=== PATIENT | male | born 1980 | race Caucasian/White ===

== ENCOUNTER 2016-12-28 22:21 | Inpatient (IN) | payer MEDICAID, OTHER ==
[2016-12-28 22:21] VITALS: BMI 22.3
[2016-12-28 23:05] LABS: BASO # 0.1 K/uL (0.0-0.2); BASO % 0.7 % (0.0-2.0); EOS # 0.2 K/uL (0.0-0.7); HEMATOCRIT 46.8 % (35.0-51.0); LYMPH # 3.3 K/uL (1.0-4.3); MEAN CELL VOLUME 84.7 fL (80.0-94.0); MEAN CORPUSCULAR HEMOGLOBIN 27.9 pg (27.0-31.0); MEAN PLATELET VOLUME 7.6 fL (7.2-11.7); MONO # 0.4 K/uL (0.0-0.8); MONO % 4.9 % (0.0-10.0); NRBC % 0.1 % (0.0-2.0); RED CELL DISTRIBUTION WIDTH 14.4 % (11.5-14.5)
[2016-12-28 23:07] LABS: URINE BILIRUBIN NEGATIVE (NEGATIVE); URINE BLOOD NEGATIVE (NEGATIVE); URINE COLOR Straw (YELLOW); URINE GLUCOSE (UA) NORMAL (Normal); URINE KETONE NEGATIVE (NEGATIVE); URINE LEUKOCYTE ESTERASE NEG Leu/uL (Negative); URINE PROTEIN NEGATIVE (NEGATIVE); URINE UROBILINOGEN NORMAL mg/dL (0.2-1.0)
[2016-12-28 23:09] LABS: CHLORIDE 104 mmol/L (98-107)
[2016-12-28 23:10] LABS: POTASSIUM 4.1 mmol/L (3.6-5.2); SODIUM 142 mmol/L (132-148)
[2016-12-28 23:12] LABS: GFR AFRICAN-AMERICAN > 60
[2016-12-28 23:13] LABS: ALB/GLOB RATIO 1.5 (1.0-2.1); ALKALINE PHOSPHATASE 57 U/L (38-126); ALT/SGPT 33 U/L (21-72); AST/SGOT 26 U/L (17-59); BILIRUBIN,TOTAL 0.8 mg/dL (0.2-1.3); BLOOD UREA NITROGEN 8 mg/dL (9-20); CALCIUM 8.8 mg/dl (8.6-10.4); CARBON DIOXIDE 20 mmol/L (22-30); GLUCOSE,RANDOM 87 mg/dL (75-110); TOTAL PROTEIN 7.8 g/dL (6.3-8.3)
[2016-12-28 23:14] LABS: ALCOHOL SERUM 150 mg/dl (0-10)
--- NOTE | 2016-12-29 03:41 | C.PDOC ---
Addendum entered and electronically signed by Oumou Mensah PA 12/29/16 09: 10: Addendum Addendum: 07:00 Receiving Sign Out Patient was signed out to me by JANN Jaimes. Pending re- evaluation and disposition. On re-evaluation, Patient has no complaints. States he is tired. No slurred speech or tremors/shaking. Pending crisis evaluation 09:00 Patient was evaluated by bridge worker apprentice, who reports that patient has been accepted for admission by Dr. Hinkle for alcohol dependence. Original Note: History Of Present Illness The patient, a 36 y/o male whose PMHx includes alcohol abuse, presents to the ED requesting alcohol detox. Patient states his last drink was around 3 hours prior to arrival. Patient denies suicidal/homicidal ideation and has no physical complaints at this time. Time Seen by Provider: 12/28/16 23:03 Chief Complaint (Nursing): Substance Abuse History Per: Patient History/Exam Limitations: intoxication Onset/Duration Of Symptoms: Hrs Current Symptoms Are (Timing): Still Present Modifying Factor(s): Alcohol Associated Symptoms: denies: Suicidal Thoughts, Suicidal Plan Involuntary Hold By: None Recent travel outside of the [place]: No Additional History Per: Patient Past Medical History Reviewed: Historical Data, Nursing Documentation, Vital Signs Vital Signs: Last Vital Signs Temp 97.7 F 12/28/16 22:34 Pulse 80 12/28/16 22:34 Resp 17 12/29/16 06:20 BP 108/70 12/28/16 22:34 Pulse Ox 98 12/29/16 06:20 - Medical History PMH: Depression, Migraine, Schizophrenia Denies: Bipolar Disorder, Diabetes, Hepatitis, HIV, HTN, Personality Disorder , Chronic Kidney Disease, Seizures, Sexually Transmitted Disease Surgical History: No Surg Hx - [facility] Procedures ALCOHOL DETOXIFICATION (05/09/13) GROUP PSYCHOTHERAPY (06/08/16) INDIVIDUAL PSYCHOTHERAPY, BEHAVIORAL (09/20/15) INDIVIDUAL PSYCHOTHERAPY, COGNITIVE-BEHAVIORAL (06/08/16) INTRODUCTION OF SERUM/TOX/VACCINE INTO MUSCLE, PERC APPROACH (06/08/16) Family History: States: Unknown Family Hx - Social History Hx Tobacco Use: No Hx Alcohol Use: Yes Hx Substance Use: Yes (cocaine) - Immunization History Hx Tetanus Toxoid Vaccination: Yes Hx Influenza Vaccination: Yes Hx Pneumococcal Vaccination: Yes Review Of Systems Except As Marked, All Systems Reviewed And Found Negative. Psych: Positive for: Other (reqest for alcohol detox ). Negative for: Suicidal ideation Physical Exam - Physical Exam Appears: No Acute Distress Skin: Normal Color, Warm, Dry Head: Atraumatic, Normacephalic Eye(s): bilateral: Normal Inspection, EOMI Oral Mucosa: Moist, Other (alcohol on breath ) Neck: Supple Chest: Symmetrical, No Deformity, No Tenderness Cardiovascular: Rhythm Regular, No Murmur Respiratory: Normal Breath Sounds, No Rales, No Rhonchi, No Wheezing Extremity: Normal ROM, Capillary Refill (less than 2 seconds) Neurological/Psych: Oriented x3, No Normal Speech (slurred ), Other (no hand tremors ) Gait: Steady ED Course And Treatment - Laboratory Results Result Diagrams: 12/28/16 23:02 12/28/16 23:02 O2 Sat by Pulse Oximetry: 95 (on RA) Pulse Ox Interpretation: Normal Progress Note: labs ordered and reviewed. 7AM--- Pt is pending crisis eval for detox. Pt has no other c/o , VSS Disposition - Disposition Disposition: HOME/ ROUTINE Disposition Time: 06:59 Condition: STABLE - Clinical Impression Clinical Impression: Alcohol abuse - PA / TEST CELL TECHNICIAN / Resident Statement MD/DO has reviewed & agrees with the documentation as recorded. - Scribe Statement The provider has reviewed the documentation as recorded by the Scribe (Nathalia Espinosa) All medical record entries made by the Scribe were at my direction and personally dictated by me. I have reviewed the chart and agree that the record accurately reflects my personal performance of the history, physical exam, medical decision making, and the department course for this patient. I have also personally directed, reviewed, and agree with the discharge instructions and disposition. Physician Patient Turnover Patient Signed Over To: Oumou Mensah Handoff Comments: Pending crisis eval for detox admission
[2016-12-29] MEDS ORDERED: Alum-Mag Hydrox-Simethicone Susp (30 mL) PO PRN (13:35)
[2016-12-29] MEDS: Brimonidine 0.2% Opth Sol (5ml) OU SCH (21:17)
--- NOTE | 2016-12-29 22:10 | PCM.PSYCH ---
Initial Psychiatric Evaluation - Initial Psychiatric Evaluation Chief Complaint (in patient's own words): i am tired of being drunk Patient's Reaction to Hospitalization: glad and happy History of Present Illness and Precipitating Events: pt is a 36 year old male who lives with a friend. he started drinking alcohol age 15n and became a problem in his mid twenties.Pt drinks on the average 10 beers a day Pt uses cocaine when he is drunk. he DENIES USE OF ANY OTHER SUBSTANCES LICIT OR ILLICIT. mother and father are . pt has 4 sisters and he is fourth in a sibship of five. pT DENIES ANY FAMILY HISTORY OF MENTAL ILLNESS OR SUBSTANCE ABUSE Pt has been at [facility] three times . The first time was age 17 and the last one was six months ago. He usually goes to the hospital because of panic attacks. Pt had one detox at [facility] but never was in a rehab, The longest period of sobriety has been 3 months. [place] and came to [place] age 9. He went up to 11th grade. He never worked. He gets SSI Current Medications: Active Medications Generic Name Dose Route Start Last Admin Trade Name Freq PRN Reason Stop Dose Admin Acetaminophen 650 mg 12/29/16 13:44 Tylenol 325mg Tab PO Q6 PRN Pain, moderate (4-7) Al Hydrox/Mg Hydrox/Simethicone 30 ml 12/29/16 13:35 Maalox Plus 30 Ml PO 01/01/17 13:36 Q6 PRN Indigestion / Heartburn Brimonidine Tartrate 0.1 ml 12/29/16 22:00 12/29/16 21:17 Alphagan 0.2% Opht OU 1 drop Q12 KRYSTAL Administration Chlordiazepoxide 25 mg 12/29/16 18:00 12/29/16 18:03 Librium PO 01/02/17 17:59 25 mg Q6 KRYSTAL Administration Taper Chlordiazepoxide 25 mg 12/29/16 13:40 Librium PO Q4H PRN Alcohol Withdrawal Folic Acid 1 mg 12/30/16 10:00 Folic Acid PO DAILY KRYSTAL Hydroxyzine HCl 25 mg 12/29/16 13:36 Atarax PO Q6 PRN Anxiety Influenza Virus Vaccine 45 mcg 01/01/17 09:00 Afluria IM 01/01/17 09:01 .ONCE ONE Multivitamins 1 tab 12/30/16 10:00 Hexavitamin PO DAILY KRYSTAL Thiamine HCl 100 mg 12/30/16 10:00 Vitamin B1 Tab PO DAILY KRYSTAL Trazodone HCl 50 mg 12/29/16 22:00 12/29/16 21:19 Desyrel PO 50 mg HS PRN Administration Insomnia Past Psychiatric History - Past Psychiatric History Prior Professional Help: see HPI Pertinent Medical Hx (Current Medical&Sleep Prob, Allergies): Allergies Allergy/AdvReac Type Severity Reaction Status Date / Time No Known Allergies Allergy Verified 12/28/15 19:05 No Known Home Med 12/28/16 Review of Systems - Constitutional Constitutional: Weakness, Malaise - EENT Eyes: UNREMARKABLE Ears: UNREMARKABLE Nose/Mouth/Throat: UNREMARKABLE - Cardiovascular Cardiovascular: UNREMARKABLE - Respiratory Respiratory: UNREMARKABLE - Gastrointestinal Gastrointestinal: UNREMARKABLE - Genitourinary Genitourinary: UNREMARKABLE - Reproductive: Male Reproductive:Male: UNREMARKABLE - Musculoskeletal Musculoskeletal: Back Pain - Integumentary Integumentary: UNREMARKABLE - Neurological Neurological: UNREMARKABLE - Psychiatric Psychiatric: Anxiety, Irritability - Endocrine Endocrine: UNREMARKABLE - Hematologic/Lymphatic Hematologic: UNREMARKABLE Mental Status Examination - Personal Presentation Personal Presentation: Looks older than stated age - Affect Affect: Constricted - Motor Activity Motor Activity: Calm - Reliability in Providing Information Reliability in Providing Information: Good - Speech Speech: Organized - Mood Mood: Anxious - Formal Thought Process Formal Thought Process: No Impairment - Cognitive Functions Orientation: Person, Place, Situation, Time Sensorium: Alert Attention/Concentration: Attentive Abstract Thinking: Sidman Estimate of Intelligence: Average Judgement: Intact, as evidence by: Insight regarding need for hospitalization Memory: Remote intact, as evidenced by: Abilit to recall sig. life events - Risk Risk: Withdrawal - Strength & Assets Inventory Strength & Assets Inventory: Cooperative - Limitations Limitations: Living alone DSM 5 DX - DSM 5 DSM 5 Diagnosis: ALCOHOL WITHDRAWAL SEVERE ALCOHOL USE DISORDER COCAINE USE DISORDER ALCOHOL USE DISORDER-LIBRIUM TAPER GROUPS SUPPORTIVE PSYCHOTHERAPY MO CBT ALCOHOL USE DISORER GROUPS MO CBT COCAINE USE DISORDER GROUPS SUPPORTIVE PSYCHOTHERAPY - Recommended/Plan of Treatment Projected ELOS: 5 DAYS Prognosis: FAIR Discharge Plan and Discharge Criteria: NO ACUTE WITHDRAWAL SYMPTOMS - Smoking Cessation Smoking Cessation Initiated: No
[2016-12-30] MEDS: Multiple Vitamins Tab PO SCH (09:09)
[2016-12-30] MEDS: Brimonidine 0.2% Opth Sol (5ml) OU SCH ×2 (09:09→21:25)
--- NOTE | 2016-12-30 15:21 | PCM.PYCHPN ---
Psychiatric Progress Note - Psychiatric Progress Note Patient seen today, length of contact: 16 minutes Patient Chief Complaint: "I'm getting better" Problems Identified/Issues Discussed: Pt was seen, chart reviewed and case discussed. Pt states detox is going well. Denies chills, diaphoresis, and all other symptoms. Once discharged, pt's plan includes changing his group of friends to maintain sobriety. Pt is interested in once weekly vivitrol program following discharge. Psychiatric education and support given. Medication Change: Yes (detox changes daily) Medical Record Reviewed: Yes Mental Status Examination - Cognitive Function Orientation: Person, Place, Situation, Time Memory: Intact Attention: WNL Concentration: Poor Association: WNL Fund of Knowledge: WNL - Mood Mood: Anxious - Affect Affect: Constricted - Speech Speech: Appropriate - Formal Thought Process Formal Thought Process: No Impairment - Suicidal Ideation Suicidal Ideation: No - Homicidal Ideation Homicidal Ideation: No Goal/Treatment Plan - Goal/Treatment Plan Need for Continued Stay: Discharge may exacerbated symptoms, Severe functional impairment Progress Toward Problem(s) and Goals/Treatment Plan: 1. Alcohol withdrawal -Librium taper protocol -Supportive psychotherapy, [place], CBT -continue group activities -As needed meds -Refer to program Estimated Date of D/C: 01/02/17
[2016-12-31] MEDS: Brimonidine 0.2% Opth Sol (5ml) OU SCH ×2 (09:18→17:40)
[2016-12-31] MEDS: Multiple Vitamins Tab PO SCH (09:19)
[2016-12-31] MEDS ORDERED: Magnesium Hydroxide Susp 30 ml UD PO ONE (12:50)
--- NOTE | 2016-12-31 16:06 | PCM.PYCHPN ---
Psychiatric Progress Note - Psychiatric Progress Note Patient seen today, length of contact: 16 minutes Patient Chief Complaint: "I'm getting better" Problems Identified/Issues Discussed: Pt was seen, chart reviewed and case discussed. Pt states he feels better, slept well. Complains of constipation. Denies shakes , diaphoresis, suicidal ideation, homicidal ideation and hallucinations. Once discharged, pt's plan includes Attending AA meetings, however will talk with counselor to organize more intensive plan. Psychoeducation and support given. Medication Change: Yes (detox changes daily) Medical Record Reviewed: Yes Mental Status Examination - Cognitive Function Orientation: Person, Place, Situation, Time Memory: Intact Attention: WNL Concentration: Poor Association: WNL Fund of Knowledge: WNL - Mood Mood: Anxious - Affect Affect: Constricted - Speech Speech: Appropriate - Formal Thought Process Formal Thought Process: No Impairment - Suicidal Ideation Suicidal Ideation: No - Homicidal Ideation Homicidal Ideation: No Goal/Treatment Plan - Goal/Treatment Plan Need for Continued Stay: Discharge may exacerbated symptoms, Severe functional impairment Progress Toward Problem(s) and Goals/Treatment Plan: 1. Alcohol withdrawal -Librium taper protocol -Supportive psychotherapy, [place], CBT -continue group activities -As needed meds -Refer to program Estimated Date of D/C: 01/02/17
[2017-01-01] MEDS ORDERED: Influenza Virus Vaccine 45 mcg/0.5 ml Syr IM ONE (09:00)
[2017-01-01] MEDS: Brimonidine 0.2% Opth Sol (5ml) OU SCH ×2 (09:25→18:10)
[2017-01-01] MEDS: Multiple Vitamins Tab PO SCH (09:26)
[2017-01-01 10:36] VITALS: O2SAT 98
--- NOTE | 2017-01-01 12:33 | PCM.PYCHPN ---
Psychiatric Progress Note - Psychiatric Progress Note Patient seen today, length of contact: 15 min Patient Chief Complaint: "I'm tired. I can't go to the bathroom" Problems Identified/Issues Discussed: The pt is seen, chart reviewed, case discussed with staff. The pt is compliant with medications and reports no side-effects. Symptoms are improving but needs more time to stabilize. After care discussed, support and psychoeducation given. Medication Change: Yes (detox changes daily) Medical Record Reviewed: Yes Mental Status Examination - Cognitive Function Orientation: Person, Place, Situation, Time Memory: Intact Attention: WNL Concentration: Poor Association: WNL Fund of Knowledge: WNL - Mood Mood: Anxious - Affect Affect: Constricted - Speech Speech: Appropriate - Formal Thought Process Formal Thought Process: No Impairment - Suicidal Ideation Suicidal Ideation: No - Homicidal Ideation Homicidal Ideation: No Goal/Treatment Plan - Goal/Treatment Plan Need for Continued Stay: Discharge may exacerbated symptoms, Severe functional impairment Progress Toward Problem(s) and Goals/Treatment Plan: 1. Alcohol withdrawal -Librium taper protocol adjusted -Dulcolax for constipation -Supportive psychotherapy, [place], CBT -continue group activities -As needed meds - Consider Vivitrol He is on naltrexone now Estimated Date of D/C: 01/02/17
[2017-01-01] MEDS ORDERED: Bisacodyl 5mg EC Tab PO ONE (13:00)
[2017-01-01 15:27] VITALS: RESP 18
[2017-01-01 21:06] VITALS: TEMP 97.6
[2017-01-02 06:16] VITALS: BP 104/64; PULSE 58
--- NOTE | 2017-01-02 08:54 | PCM.PYCHDC ---
Mental Status Examination - Mental Status Examination Orientation: Person, Place, Situation, Time Memory: Intact Mood: Anxious Affect: Constricted Speech: Appropriate Attention: WNL Concentration: WNL Association: WNL Fund of Knowledge: WNL Formal Thought Process: No Impairment Suicidal Ideation: No Current Homicidal Ideation?: No Discharge Summary - Discharge Note Reason for Hospitalization: pt is a 36 year old male who lives with a friend. he started drinking alcohol age 15n and became a problem in his mid twenties.Pt drinks on the average 10 beers a day Pt uses cocaine when he is drunk. he DENIES USE OF ANY OTHER SUBSTANCES LICIT OR ILLICIT. mother and father are . pt has 4 sisters and he is fourth in a sibship of five. pT DENIES ANY FAMILY HISTORY OF MENTAL ILLNESS OR SUBSTANCE ABUSE Pt has been at [facility] three times . The first time was age 17 and the last one was six months ago. He usually goes to the hospital because of panic attacks. Pt had one detox at [facility] but never was in a rehab, The longest period of sobriety has been 3 months. [place] was [place] and came to [place] age 9. He went up to 11th grade. He never worked. He gets SSI Psychiatric History (includes Medical, Family, Personal Hx): Alcohol use disorder, cocaine use disorder Consultations:: List each consultation separately and include: 1. Reason for request. 2. Findings. 3. Follow-up Summary of Hospital Course include:: 1. Description of specific treatment plan utilized for patients during their course of treatmen. 2. Summarize the time- course for resolution of acute symptoms and/or regressed behaviors. 3. Describe issues identified and worked on during hospitalization. 4. Describe medication utilized. 5. Describe medical problems identified and treated. 6. Reassessment of suicide risk Summary of Hospital Course: Pt seen, chart reviewed, and case discussed. Pt feels better and ready for discharge. Will go to [facility]. Attended groups and activities. GA used. Librium detox completed. Responded well to treatment. - Final Diagnosis (DSM 5) Condition upon Discharge: STABLE Disposition: HOME/ ROUTINE Follow-up Treatment Plan: continue below medications Attend Aftercare: [facility] Use relapse prevention skills Attend AA Return to ER if experience suicidal ideation, homicidal ideation, agitation. Prescriptions/Medication Reconciliation: traZODone [Desyrel] 50 mg PO HS PRN #30 tab PRN Reason: Insomnia Multivitamins [Hexavitamin] 1 tab PO DAILY #30 tab Naltrexone [Revia] 50 mg PO DAILY #30 tab - Smoking Cessation Smoking Cessation Medication prescribed: No - Antipsychotic Medications Pt discharged on 2 or more routine antipsychotic medications: No
[2017-01-02] MEDS: Brimonidine 0.2% Opth Sol (5ml) OU SCH (09:51)
[2017-01-02] MEDS: Multiple Vitamins Tab PO SCH (09:51)
== END 2017-01-02 11:09 | disposition home or self-care (01) ==
LOC: C.ER 22:21 → C.7D 12-29 09:00
PROVIDERS: ADMIT Psychiatry & Neurology Psychiatry; ATTEND Psychiatry & Neurology Psychiatry
PROC: HZ2ZZZZ Detoxification Services for Substance Abuse Treatment (ICD-10-PCS; principal; 2016-12-29)
PROC: HZ46ZZZ Group Counseling for Substance Abuse Treatment, Psychoeducation (ICD-10-PCS; 2016-12-29)
PROC: HZ59ZZZ Individual Psychotherapy for Substance Abuse Treatment, Supportive (ICD-10-PCS; 2016-12-29)
DX: F10.230 Alcohol dependence with withdrawal, uncomplicated (principal); F14.10 Cocaine abuse, uncomplicated; F41.9 Anxiety disorder, unspecified; G43.909 Migraine, unspecified, not intractable, without status migrainosus

== ENCOUNTER 2019-01-08 20:23 | Emergency (ER) | payer MEDICAID ==
[2019-01-08 20:25] VITALS: BMI 22.3
[2019-01-08 20:34] VITALS: O2SAT 99
--- NOTE | 2019-01-08 21:26 | C.PDOC ---
History Of Present Illness 38 year old male presents to the ED for alcohol intoxication and also requesting detox. 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 Patient denies SI/HI, hallucinations, injury, fall, trauma, other medical complaints. Time Seen by Provider: 01/08/19 21:07 Chief Complaint (Nursing): Substance Abuse History Per: Patient History/Exam Limitations: intoxication Onset/Duration Of Symptoms: Hrs Current Symptoms Are (Timing): Still Present Suicide/Self Injury Attempted (Context): None Modifying Factor(s): Alcohol Associated Symptoms: denies: Depression, Suicidal Thoughts, Suicidal Plan Recent travel outside of the [place]: No Additional History Per: Patient Past Medical History Reviewed: Historical Data, Nursing Documentation, Vital Signs Vital Signs: Last Vital Signs Temp 98.2 F 01/08/19 20:30 Pulse 100 H 01/08/19 20:30 Resp 20 01/08/19 20:30 BP 113/71 01/08/19 20:30 Pulse Ox 99 01/08/19 20:30 - Medical History PMH: Anxiety, Bipolar Disorder, Depression, Migraine, Schizophrenia Denies: Diabetes, Hepatitis, HIV, HTN, Personality Disorder, Chronic Kidney Disease, Seizures, Sexually Transmitted Disease Surgical History: No Surg Hx - [facility] Procedures ALCOHOL DETOXIFICATION (05/09/13) DETOXIFICATION SERVICES FOR SUBSTANCE ABUSE TREATMENT (12/29/16) GROUP REJOGGER FOR SUBSTANCE ABUSE TREATMENT, PSYCHOEDUCATION (12/29/16) GROUP PSYCHOTHERAPY (06/08/16) INDIV PSYCHOTHERAPY FOR SUBSTANCE ABUSE TREATMENT, SUPPORT (12/29/16) INDIVIDUAL PSYCHOTHERAPY, BEHAVIORAL (09/20/15) INDIVIDUAL PSYCHOTHERAPY, COGNITIVE-BEHAVIORAL (06/08/16) INTRODUCTION OF SERUM/TOX/VACCINE INTO MUSCLE, PERC APPROACH (10/21/17) Family History: States: Unknown Family Hx - Social History Hx Tobacco Use: No Hx Alcohol Use: Yes Hx Substance Use: Yes - Immunization History Hx Tetanus Toxoid Vaccination: Yes Hx Influenza Vaccination: No Hx Pneumococcal Vaccination: Yes Review Of Systems Except As Marked, All Systems Reviewed And Found Negative. Cardiovascular: Negative for: Chest Pain Respiratory: Negative for: Shortness of Breath Psych: Positive for: Other (Intoxicated) Physical Exam - Physical Exam Additional Physical Exam Comments: Constitutional: No acute distress. Head: Normocephalic. Atraumatic. Eyes: PERRL. ENT: Moist mucous membranes. Neck: Supple. Cardiovascular: Regular rate. Radial pulse 2+ bilaterally. Chest: No tenderness. Respiratory: Clear to auscultation bilaterally. GI: Soft. Nontender. Nondistended. Back: No CVA tenderness. Musculoskeletal: No tenderness or swelling of extremities. Skin: No rash. Neurologic: Alert, no focal deficit. ED Course And Treatment O2 Sat by Pulse Oximetry: 99 (ON RA) Pulse Ox Interpretation: Normal Medical Decision Making Medical Decision Making: Plan: * Discussed with furniture lumber production worker, states patient is not a candidate for detox at this time. * Patient with steady gait, discharged. Disposition - Disposition Disposition: HOME/ ROUTINE Disposition Time: 22:07 Condition: GOOD Instructions: Effects of Alcohol on Your Health Forms: [email or web address] (Moz[place]ican) - Clinical Impression Clinical Impression: Alcohol intoxication - Scribe Statement The provider has reviewed the documentation as recorded by the Scribe Yony Chapman All medical record entries made by the Scribe were at my direction and personally dictated by me. I have reviewed the chart and agree that the record accurately reflects my personal performance of the history, physical exam, medical decision making, and the department course for this patient. I have also personally directed, reviewed, and agree with the discharge instructions and disposition.
[2019-01-08 21:55] VITALS: BP 127/73; PULSE 82; RESP 16; TEMP 98
== END 2019-01-08 22:54 | disposition home or self-care (01) ==
LOC: C.ER 20:23
DX: F10.129 Alcohol abuse with intoxication, unspecified (principal)